=== PATIENT | female | born 1955 | race Caucasian/White ===

== ENCOUNTER 2018-07-17 10:29 | Inpatient (IN) | payer BC ==
[2018-07-13 17:14] LABS: CLARITY,URINE SLIGHTLY CLOUDY (Clear); COLOR,URINE YELLOW (Yellow); GLUCOSE, URINE NEGATIVE (Neg); KETONES,URINE 40 mg/dl (Neg); LEUKOCYTE ESTERASE ,URINE NEGATIVE (Neg); NITRITES, URINE NEGATIVE (Neg); OCCULT BLOOD,URINE SMALL (Neg); PH,URINE 5.5 (4.8-8.0); PROTEIN,URINE NEGATIVE (Neg); UROBILINOGEN,URINE 0.2 E.U/dL (0.2-1.0)
[2018-07-13 17:18] LABS: BASOPHILS % (AUTO) 0.6 % (0-1); EOSINOPHILS # (AUTO) 0.1 X10'3 (0-0.9); EOSINOPHILS % (AUTO) 1.1 % (0-6); LYMPHOCYTES # (AUTO) 1.6 X10'3 (1.1-4.8); LYMPHOCYTES % (AUTO) 19.6 % (21-51); MEAN CORPUSCULAR HEMOGLOBIN 29.8 PG (27.0-31.0); MEAN CORPUSCULAR HGB CONC 32.5 % (33.0-36.5); MEAN CORPUSCULAR VOLUME 91.7 FL (78-98); MEAN PLATELET VOLUME 9.1 FL (7.4-10.4); MONOCYTES # (AUTO) 0.4 X10'3 (0-0.9); MONOCYTES % (AUTO) 5.5 % (2-12); NEUTROPHILS # (AUTO) 5.8 X10'3 (1.8-7.7); NEUTROPHILS % (AUTO) 73.2 % (42-75); PRE OP HEMATOCRIT 45.4 % (35.0-45.0); PRE OP HEMOGLOBIN 14.8 g/dL (12.0-16.0); PRE OP PLATELET COUNT 434 X10'3 (140-440); RED BLOOD COUNT 4.95 X10'6 (4.20-5.60); RED CELL DISTRIBUTION WIDTH 12.9 % (11.5-14.5)
[2018-07-13 17:21] LABS: PRE OP INR 0.9 INR; PRE OP PROTIME 9.6 SECONDS (9.0-12.0)
[2018-07-13 17:31] LABS: UA COLLECTION TYPE CLN CATCH MIDSTREAM
[2018-07-13 17:32] LABS: ALBUMIN 3.6 G/DL (3.4-5.0); ALBUMIN/GLOBULIN RATIO 0.9 (1.1-1.5); ALKALINE PHOSPHATASE 45 IU/L (46-116); BLOOD UREA NITROGEN 17 MG/DL (7-18); BUN/CREATININE RATIO 26.6 (6.6-38.0); CALCIUM 9.2 MG/DL (8.5-10.1); CHLORIDE 102 MMOL/L (99-107); CREATININE 0.64 MG/DL (0.40-0.90); PRE OP ALT 36 U/L (30-65); PRE OP ANION GAP 13 (8-16); PRE OP AST 16 U/L (10-37); PRE OP BILIRUB, TOTAL 0.5 MG/DL (0.0-1.0); PRE OP GLUCOSE 92 MG/DL (70-104); PRE OP POTASSIUM 3.9 MMOL/L (3.4-5.1); PRE OP SODIUM 140 MMOL/L (135-145); TOTAL CARBON DIOXIDE 25.2 MMOL/L (24-32); TOTAL PROTEIN 7.6 G/DL (6.4-8.2); eGFR > 90 ML/MIN
[2018-07-13 17:33] LABS: MUCUS STRANDS MANY /LPF (Neg); SQUAMOUS EPITHELIAL CELL,UR MANY /LPF (FEW)
[2018-07-13 17:34] LABS: BACTERIA,URINE 2+ /HPF (Neg); RBC,URINE 0-2 /HPF (0-2); WBC,URINE 0-4 /HPF (0-4)
[~2018-07-17] VITALS: Ht 175.3 cm; Wt 106.0 kg
[2018-07-17] VITALS (17 sets, daily range): BP systolic 122–159; BP diastolic 65–98
[~2018-07-17 10:29] MED LIST: COMPOUNDED HORMONES TOP; COMPOUNDED THYROID PO; acetaminophen 325mg tablet PO ONE; cefazolin/dext.iso 2gm/100 ML IV ONE; famotidine 20mg tablet PO ONE; gabapentin 300mg capsule PO ONE; oxyCODONE SR 10mg (sust. release) tab -2 tabs (20mg) PO ONE; ringers solution, lacted 1,000 ML IV SCH; tranexamic acid inj. 1,500 MG in normal saline 100ml IV soln 100 ML IV ONE
[2018-07-17] MEDS ORDERED: bacitracin inj 150,000 UNIT in sodium chloride irrig. sol 3,000 ML IR ONE (12:00)
[2018-07-17] MEDS ORDERED: ringers solution, lacted 1,000 ML IV SCH (12:16)
[2018-07-17] MEDS ORDERED: morphine 4 MG/ML inj SYRINge IV PRN ×2 (12:20)
[2018-07-17] MEDS ORDERED: ondansetron/PF 4mg/2ml inj IV PRN ×2 (12:20→14:45)
[2018-07-17] MEDS ORDERED: proCHLORperazine 10 MG/2 ml inj IV PRN (12:20)
[2018-07-17] MEDS ORDERED: meperidine/PF 25mg/ml syringe IV PRN ×3 (12:20)
[2018-07-17] MEDS ORDERED: ceFAZolin 1000mg inj ONE (13:32)
[2018-07-17] MEDS ORDERED: BUPIVAcaine/PF 7.5mg/ml (0.75%) 10ml vial ONE (13:41)
[2018-07-17] MEDS ORDERED: fentaNYL/PF 50MCG/1 ML 2ML syringe ONE (13:42)
[2018-07-17] MEDS ORDERED: ROPIVAcaine 0.5% (5mg/ml) 30ml vial ONE (13:42)
[2018-07-17] MEDS ORDERED: MIDAZolam 1mg/ml 10ml vial ONE (13:42)
[2018-07-17] MEDS ORDERED: morphine 10mg/ml inj. ONE (13:42)
[2018-07-17] MEDS ORDERED: morphine /PF 1mg/ml 10ml inj. ONE (13:43)
[2018-07-17] MEDS ORDERED: naloxone 2mg/2ml inj 2 MG in normal saline 500ml IV soln 500 ML IV PRN (14:45)
[2018-07-17] MEDS ORDERED: diphenhydrAMINE 50 mg/ml inj IV PRN (14:45)
[2018-07-17] MEDS ORDERED: HYDROmorphone 1 mg/ml syringe IV PRN (15:35)
[2018-07-17] MEDS ORDERED: bisacodyl 10mg suppository rectal RC PRN (15:35)
[2018-07-17] MEDS ORDERED: magnesium hydroxide 30ml (MOM) UD suspension PO PRN (15:35)
[2018-07-17] MEDS ORDERED: acetaminophen 325mg tablet PO PRN (15:35)
[2018-07-17] MEDS ORDERED: diphenhydrAMINE 25mg capsule PO PRN ×2 (15:35)
--- NOTE | 2018-07-17 16:10 | NUR ---
Received from OR via bed, accompanied by Anesthesiologist. Report received. Initial physical assessment done and recorded.
--- NOTE | 2018-07-17 16:15 | NUR ---
Discharge criteria met, report to receiving floor. Transferred to room in stable condition.
--- NOTE | 2018-07-17 17:35 | NUR ---
pt arrived on floor in ortho bed vomiting
--- NOTE | 2018-07-17 18:07 | NUR ---
gave report to wagner vigil
[2018-07-17] MEDS: ceFAZolin 1GM/D5W- ADD-VANTAGE 50 ML IV SCH (18:55)
[2018-07-17] MEDS: potassium cl 20mEq in 1/2 NS 1,000 ML IV SCH (18:56)
--- NOTE | 2018-07-17 19:31 | NUR ---
RECEIVED REPORT FROM OSMAN PRATHER AND ASSUMED PATIENT CARE
[2018-07-17] MEDS: COMPOUNDED HORMONES TOP SCH (20:00)
[2018-07-17] MEDS: oxyCODONE/APAP 10/325mg tablet PO PRN (20:21)
[2018-07-17] MEDS: sennosides 8.6mg tablet PO SCH (20:21)
[2018-07-17] MEDS: ascorbic acid 500mg tablet PO SCH (20:21)
[2018-07-17] MEDS: gabapentin 300mg capsule PO SCH (20:22)
[2018-07-17] MEDS: ondansetron/PF 4mg/2ml inj IV PRN (20:24)
[2018-07-18] MEDS: oxyCODONE/APAP 10/325mg tablet PO PRN ×6 (00:01→22:27)
[2018-07-18] MEDS: ceFAZolin 1GM/D5W- ADD-VANTAGE 50 ML IV SCH (00:06)
[2018-07-18] MEDS: potassium cl 20mEq in 1/2 NS 1,000 ML IV SCH ×4 (00:11→22:27)
[2018-07-18 02:04] VITALS: BP 134/60
[2018-07-18] MEDS: ondansetron/PF 4mg/2ml inj IV PRN ×2 (05:23→14:47)
[2018-07-18 05:58] LABS: BASOPHILS % (AUTO) 0.3 % (0-1); EOSINOPHILS % (AUTO) 0.2 % (0-6); HEMATOCRIT 37.4 % (35.0-45.0); HEMOGLOBIN 12.4 g/dl (12.0-16.0); LYMPHOCYTES % (AUTO) 9.9 % (21-51); MEAN CORPUSCULAR HEMOGLOBIN 30.2 PG (27.0-31.0); MEAN CORPUSCULAR HGB CONC 33.1 % (33.0-36.5); MEAN CORPUSCULAR VOLUME 91.2 FL (78-98); MEAN PLATELET VOLUME 8.3 FL (7.4-10.4); MONOCYTES # (AUTO) 0.6 X10'3 (0-0.9); MONOCYTES % (AUTO) 5.5 % (2-12); NEUTROPHILS # (AUTO) 8.9 X10'3 (1.8-7.7); NEUTROPHILS % (AUTO) 84.1 % (42-75); PLATELET COUNT 356 X10'3 (140-440); RED CELL DISTRIBUTION WIDTH 12.7 % (11.5-14.5); WHITE BLOOD COUNT 10.5 X10'3 (4.5-11.0)
[2018-07-18 06:00] VITALS: BP 129/58
[2018-07-18 06:06] LABS: INR 1.1 INR; PROTHROMBIN TIME 11.4 SECONDS (9.0-12.0)
--- NOTE | 2018-07-18 06:07 | NUR ---
REPORT GIVEN TO JAYLAN PRATHER
[2018-07-18 06:16] LABS: ANION GAP 8 (8-16); CHLORIDE 102 MMOL/L (99-107); POTASSIUM 4.5 MMOL/L (3.5-5.1); SODIUM 137 MMOL/L (135-145)
[2018-07-18] MEDS ORDERED: scopolamine 1.5mg patch.TD72 TD ONE (07:40)
[2018-07-18] MEDS: COMPOUNDED HORMONES TOP SCH ×2 (08:00→20:00)
[2018-07-18] MEDS: multivitamins, therapeutics tablet PO SCH (08:00)
[2018-07-18] MEDS: ascorbic acid 500mg tablet PO SCH ×2 (08:00→20:34)
[2018-07-18] MEDS: COMPOUNDED THYROID PO SCH (08:00)
[2018-07-18 10:00] VITALS: BP 143/73
[2018-07-18] MEDS ORDERED: warfarin 10mg tablet PO ONE (10:00)
--- NOTE | 2018-07-18 12:05 | NUR ---
Joint replacement consult: Pt seen by MING for written/verbal high protein ed. MING reviewed high protein needs for wound healing, immune strength, high protein foods, and protein supplementation options. RD contact information provided in case of further questions. Pt agrees to ensure high protein TIDWM; MING d/w dietary; MD Whyte. Addendum: 07/18/18 at [address] Amended: Links added.
[2018-07-18] MEDS: gabapentin 300mg capsule PO SCH ×3 (12:18→20:34)
[2018-07-18] MEDS ORDERED: lactose-reduced food (Ensure High Protein) 237ml bottle PO SCH (13:00)
[2018-07-18 18:00] VITALS: BP 159/96
--- NOTE | 2018-07-18 18:29 | NUR ---
Patient in room ORTHO 4015. I have received report from CRESCENCIO Azar and had the opportunity to ask questions and assume patient care.
[2018-07-18] MEDS: celeCOXIB 100mg capsule PO SCH (20:34)
[2018-07-18] MEDS: sennosides 8.6mg tablet PO SCH (20:34)
[2018-07-18 22:00] VITALS: BP 133/70
[2018-07-19] MEDS: oxyCODONE/APAP 10/325mg tablet PO PRN ×3 (05:18→15:01)
[2018-07-19 06:00] VITALS: BP 117/75
[2018-07-19 06:11] LABS: BASOPHILS # (AUTO) 0.1 X10'3 (0-0.2); BASOPHILS % (AUTO) 0.5 % (0-1); EOSINOPHILS # (AUTO) 0.1 X10'3 (0-0.9); EOSINOPHILS % (AUTO) 0.6 % (0-6); HEMATOCRIT 35.2 % (35.0-45.0); HEMOGLOBIN 12.1 g/dl (12.0-16.0); LYMPHOCYTES % (AUTO) 7.2 % (21-51); MEAN CORPUSCULAR HEMOGLOBIN 31.2 PG (27.0-31.0); MEAN CORPUSCULAR HGB CONC 34.2 % (33.0-36.5); MEAN CORPUSCULAR VOLUME 91.1 FL (78-98); MEAN PLATELET VOLUME 8.5 FL (7.4-10.4); MONOCYTES # (AUTO) 1.1 X10'3 (0-0.9); MONOCYTES % (AUTO) 7.9 % (2-12); NEUTROPHILS # (AUTO) 11.3 X10'3 (1.8-7.7); NEUTROPHILS % (AUTO) 83.8 % (42-75); PLATELET COUNT 288 X10'3 (140-440); RED BLOOD COUNT 3.86 X10'6 (4.20-5.60); RED CELL DISTRIBUTION WIDTH 13.8 % (11.5-14.5); WHITE BLOOD COUNT 13.5 X10'3 (4.5-11.0)
--- NOTE | 2018-07-19 06:27 | NUR ---
Problems reprioritized. Patient report given, questions answered & plan of care reviewed with CRESCENCIO Gomez.
[2018-07-19 06:38] LABS: INR 1.7 INR; PROTHROMBIN TIME 17.2 SECONDS (9.0-12.0)
[2018-07-19] MEDS: ascorbic acid 500mg tablet PO SCH (08:00)
[2018-07-19] MEDS: COMPOUNDED HORMONES TOP SCH (08:00)
[2018-07-19] MEDS: celeCOXIB 100mg capsule PO SCH (08:00)
[2018-07-19] MEDS: multivitamins, therapeutics tablet PO SCH (08:00)
[2018-07-19] MEDS: gabapentin 300mg capsule PO SCH ×2 (08:00→15:00)
[2018-07-19] MEDS: COMPOUNDED THYROID PO SCH (08:00)
[2018-07-19] MEDS ORDERED: proCHLORperazine 10 MG/2 ml inj IV PRN (09:05)
[2018-07-19] MEDS ORDERED: ASPI-1264 PO (09:59)
[2018-07-19 10:00] VITALS: BP 125/74
[2018-07-19] MEDS ORDERED: warfarin 3mg tablet PO ONE (10:00)
[2018-07-19] MEDS: potassium cl 20mEq in 1/2 NS 1,000 ML IV SCH (10:50)
[2018-07-19] MEDS ORDERED: acetaminophen 325mg tablet PO PRN (15:35)
== END 2018-07-19 17:45 | disposition home health service (06) | DRG 470 ==
LOC: PAS IN 12:02 → EDSTATUS 14:00 → ORTHO 4S 17:50
PROVIDERS: ADMIT Specialist; ATTEND Specialist
PROC: 0SR90JZ Replacement of Right Hip Joint with Synthetic Substitute, Open Approach (ICD-10-PCS; principal; 2018-07-18)
DX: M16.0 Bilateral primary osteoarthritis of hip (principal); E03.9 Hypothyroidism, unspecified; G43.109 Migraine with aura, not intractable, without status migrainosus; M51.36 Other intervertebral disc degeneration, lumbar region; Z88.5 Allergy status to narcotic agent; Z87.11 Personal history of peptic ulcer disease; Z90.710 Acquired absence of both cervix and uterus
CPT/HCPCS: 36415; 73502; 80051; 80053; 81001; 82948; 84443; 85025; 85610; 85730; 86885; 86900; 86901; 87070; 97110; 97116; 97161; 97530; A6253; A6449; A6455; A7000; C1758; C1776; G0378; J0690; J0780; J2250; J2270; J2274; J2310; J2405; J2795; J3010; J3490; J7030; J7120; Q0163

== ENCOUNTER 2018-08-31 13:29 | Outpatient (CLI) | payer BC ==
[~2018-08-31 13:29] MED LIST changes: -acetaminophen 325mg tablet PO ONE; -cefazolin/dext.iso 2gm/100 ML IV ONE; -famotidine 20mg tablet PO ONE; -gabapentin 300mg capsule PO ONE; -oxyCODONE SR 10mg (sust. release) tab -2 tabs (20mg) PO ONE; -ringers solution, lacted 1,000 ML IV SCH; -tranexamic acid inj. 1,500 MG in normal saline 100ml IV soln 100 ML IV ONE
== END 2018-08-31 23:59 | disposition home or self-care (01) ==
LOC: VAS 13:29
PROVIDERS: ATTEND Specialist
DX: M79.604 Pain in right leg (principal); M79.89 Other specified soft tissue disorders; Z96.641 Presence of right artificial hip joint; Z90.710 Acquired absence of both cervix and uterus
CPT/HCPCS: 93970

== ENCOUNTER 2020-08-04 08:15 | Emergency (ER) | payer MEDICARE ==
[~2020-08-04] VITALS: Ht 175.3 cm; Wt 108.6 kg
[2020-08-04 08:55] LABS: BASOPHILS % (AUTO) 0.1 % (0-1); EOSINOPHILS # (AUTO) 0.1 X10'3 (0-0.9); EOSINOPHILS % (AUTO) 1.3 % (0-6); HEMATOCRIT 39.2 % (35.0-45.0); HEMOGLOBIN 13.5 g/dl (12.0-16.0); LYMPHOCYTES % (AUTO) 11.9 % (21-51); MEAN CORPUSCULAR HEMOGLOBIN 30.9 PG (27.0-31.0); MEAN CORPUSCULAR HGB CONC 34.3 g/dL (33.0-36.5); MEAN CORPUSCULAR VOLUME 89.9 FL (78-98); MEAN PLATELET VOLUME 7.1 FL (7.4-10.4); MONOCYTES # (AUTO) 0.7 X10'3 (0-0.9); MONOCYTES % (AUTO) 8.5 % (2-12); NEUTROPHILS # (AUTO) 6.7 X10'3 (1.8-7.7); NEUTROPHILS % (AUTO) 78.2 % (42-75); PLATELET COUNT 456 X10'3 (140-440); RED BLOOD COUNT 4.36 X10'6 (4.20-5.60); RED CELL DISTRIBUTION WIDTH 13.4 % (11.5-14.5); WHITE BLOOD COUNT 8.6 X10'3 (4.5-11.0)
[2020-08-04 09:08] LABS: ALANINE AMINOTRANSFERASE 41 U/L (12-78); ALBUMIN 3.2 G/DL (3.4-5.0); ALBUMIN/GLOBULIN RATIO 0.7 (1.1-1.5); ALKALINE PHOSPHATASE 68 IU/L (46-116); ANION GAP 9 (8-16); ASPARTATE AMINO TRANSFERASE 20 U/L (10-37); BILIRUBIN,TOTAL 0.6 MG/DL (0.1-1.0); BLOOD UREA NITROGEN 14 MG/DL (7-18); BUN/CREATININE RATIO 14.1 (6.6-38.0); CHLORIDE 103 MMOL/L (99-107); CREATININE 0.99 MG/DL (0.40-0.90); GLUCOSE 106 MG/DL (70-104); POTASSIUM 4.3 MMOL/L (3.5-5.1); SODIUM 138 MMOL/L (135-145); TOTAL CARBON DIOXIDE 26.2 MMOL/L (24-32); TOTAL PROTEIN 7.5 G/DL (6.4-8.2); eGFR 56 ML/MIN
[2020-08-04] MEDS ORDERED: PANT-47 PO (10:01)
[2020-08-04 10:14] VITALS: BP 121/79
== END 2020-08-04 10:09 | disposition home or self-care (01) ==
LOC: ER 08:16
DX: R10.84 Generalized abdominal pain (principal); R55 Syncope and collapse; R11.0 Nausea; I48.91 Unspecified atrial fibrillation; I10 Essential (primary) hypertension; E05.90 Thyrotoxicosis, unspecified without thyrotoxic crisis or storm; Z90.49 Acquired absence of other specified parts of digestive tract; Z90.710 Acquired absence of both cervix and uterus; Z72.89 Other problems related to lifestyle; Z79.899 Other long term (current) drug therapy
CPT/HCPCS: 71045; 80053; 83880; 84484; 85025; 93005; 99285